=== PATIENT | male | born 1980 | race African-American/Black ===

== ENCOUNTER 2018-09-28 19:51 | Emergency (ER) | payer SELFPAY ==
[~2018-09-28] VITALS: Ht 177.8 cm; Wt 89.8 kg
[2018-09-28 19:51] VITALS: BP 142/79
[~2018-09-28 19:51] MED LIST: ALPR0.5T PO; CLON1TAB PO; TRAZ-85 PO
[2018-09-28] MEDS ORDERED: KETOROLAC 60 MG/2 ML VIAL. IM ONE (20:15)
[2018-09-28] MEDS ORDERED: diazePAM 5 MG TABLET PO ONE (20:15)
--- NOTE | 2018-09-28 20:43 | PHYS DOC ---
Past Medical History Past Medical History: Anxiety, Bipolar, Hypertension, Other Additional Past Medical Histor: POLYPHARMACY ABUSE, back pain Past Surgical History: No Surgical History Alcohol Use: Occasionally Drug Use: Marijuana Adult General Chief Complaint Chief Complaint: LOWER BACK PAIN OR INJURY HPI HPI Patient is a 38 year old AA male who presents to the ER with complaints of mid to low back pain that is on the left side and occasionally radiates to his left leg. Pt reports an injury a year ago that he received physical therapy for and mediations. Pt states he is not taking anything for his back pain at this time. He denies any new injury. He denies any loss of bowel/bladder control or saddle anesthesia. Currently, he rates the pain a 10/10 on the pain scale and reports that the pain is exacerbated by palpation and movement. Review of Systems Review of Systems Constitutional: Denies fever or chills [] Eyes: Denies change in visual acuity, redness, or eye pain [] HENT: Denies nasal congestion or sore throat [] Respiratory: Denies cough or shortness of breath [] Cardiovascular: No additional information not addressed in HPI [] GI: Denies abdominal pain, nausea, vomiting, or diarrhea [] : Denies dysuria or hematuria [] Musculoskeletal: See HPi Integument: Denies rash or skin lesions [] Neurologic: Denies headache, focal weakness or sensory changes [] Complete systems were reviewed and found to be within normal limits, except as documented in this note. Current Medications Current Medications Current Medications Medications (Trade) Dose Ordered Sig/José Start Time Stop Time Status Last Admin Dose Admin Diazepam (Valium) 5 mg 1X ONCE 09/28/18 20:15 09/28/18 20:16 DC 09/28/18 20:30 5 MG Ketorolac Tromethamine (Toradol Im) 30 mg 1X ONCE 09/28/18 20:15 09/28/18 20:16 DC 09/28/18 20:30 30 MG Allergies Allergies Allergies Coded Allergies Type Severity Reaction Last Updated Verified Penicillins Allergy Unknown 08/30/14 No Physical Exam Physical Exam Constitutional: Well developed, well nourished, no acute distress, non-toxic appearance. [] HENT: Normocephalic, atraumatic, bilateral external ears normal, nose normal. [] Eyes: conjunctiva normal, no discharge. [] Neck: Normal range of motion, no stridor. [] Skin: Warm, dry, no erythema, no rash. [] Back: left lumbar paraspinal and lumbar bony tenderness to palpation, no crepitus or deformity, increased back pain with left straight leg lift Extremities: No cyanosis, no clubbing, ROM intact, no edema. [] Neurologic: Alert and oriented X 3, normal motor function, normal sensory function, no focal deficits noted. [] Psychologic: Affect normal, judgement normal, mood normal. [] Current Patient Data Vital Signs Vital Signs Date Time Temp Pulse Resp B/P (MAP) Pulse Ox O2 Delivery O2 Flow Rate FiO2 09/28/18 19:51 97.8 73 20 142/79 (100) 97 Room Air 97.8 EKG EKG [] Radiology/Procedures Radiology/Procedures [] Course & Med Decision Making Course & Med Decision Making Pertinent Labs and Imaging studies reviewed. (See chart for details) Dx: low back pain with left leg sciatica Pt was given 30 mg of toradol IM and 5 mg PO valium; Pt declined X-ray of lumbar spine Prescriptions written for naproxen and flexeril. Follow up with PCP if symptoms persist, return to the ER if symptoms worsen. Patient verbalized an understanding of home care, medications, follow-up, and return to ED instructions and was in agreement with the plan of care. [] Dragon Disclaimer Dragon Disclaimer This electronic medical record was generated, in whole or in part, using a voice recognition dictation system. Departure Departure Impression: Primary Impression: Low back pain with left-sided sciatica Disposition: HOME, SELF-CARE Condition: STABLE Referrals: NO PCP (PCP) Patient Instructions: Back Pain, Adult, [id number], Sciatica, [id number] Additional Instructions: Fill the Prescriptions and use as directed. May apply ice or heat to the sore areas for comfort. Activity as tolerated. Follow-up with your primary care doctor if symptoms persist. Return to the ER if symptoms worsen. Scripts Cyclobenzaprine Hcl (CYCLOBENZAPRINE HCL) 10 Mg Tablet 1 TAB PO TID PRN for PAIN for 7 Days, #21 TAB 0 Refills Prov: JORGE RUBI [employer] 09/28/18 Naproxen (NAPROXEN) 500 Mg Tablet 500 MG PO BID PRN for PAIN for 10 Days, #20 TAB 0 Refills Prov: JORGE RUBI [employer] 09/28/18 Problem Qualifiers Primary Impression: Low back pain with left-sided sciatica Chronicity: acute Back pain laterality: left Qualified Codes: M54.42 - Lumbago with sciatica, left side JORGE [employer]BI [employer] Sep 28, 2018 20:43
[2018-09-28] MEDS ORDERED: CYCL10TA2 PO (20:50)
[2018-09-28] MEDS ORDERED: NAPR-514 PO (20:50)
== END 2018-09-28 21:12 | disposition home or self-care (01) ==
LOC: ER 19:51
DX: M54.42 Lumbago with sciatica, left side (principal); F41.9 Anxiety disorder, unspecified; F31.9 Bipolar disorder, unspecified; I10 Essential (primary) hypertension; Z88.0 Allergy status to penicillin
CPT/HCPCS: 96372; 99283; J1885

== ENCOUNTER 2018-10-20 16:41 | Emergency (ER) | payer SELFPAY ==
[~2018-10-20] VITALS: Ht 182.9 cm; Wt 105.2 kg
[~2018-10-20 16:41] MED LIST changes: +CYCL10TA2 PO; +NAPR-514 PO
[2018-10-20] MEDS ORDERED: KETOROLAC 30 MG/ML VIAL. IV ONE (18:15)
[2018-10-20] MEDS ORDERED: METH4TAB2 PO (18:22)
--- NOTE | 2018-10-20 18:26 | PHYS DOC ---
Past Medical History Past Medical History: Anxiety, Bipolar, Hypertension, Other Additional Past Medical Histor: POLYPHARMACY ABUSE, back pain Past Surgical History: No Surgical History Alcohol Use: Occasionally Drug Use: Marijuana Adult General Chief Complaint Chief Complaint: BACK PAIN OR INJURY HPI HPI Patient is a 38 year old male who presents with back pain. The patient come via [place] [place] [facility]. He states he has point spinal pain in his lower back. He states he can't walk due to pain, but was ambulating. He denies spontaneous loss of bolwel or bladder, saddle numbness or foot drop. Review of Systems Review of Systems Constitutional: Denies fever or chills [] Eyes: Denies change in visual acuity, redness, or eye pain [] HENT: Denies nasal congestion or sore throat [] Respiratory: Denies cough or shortness of breath [] Cardiovascular: No additional information not addressed in HPI [] GI: Denies abdominal pain, nausea, vomiting, bloody stools or diarrhea [] : Denies dysuria or hematuria [] Musculoskeletal: See HPI Integument: Denies rash or skin lesions [] Neurologic: Denies headache, focal weakness or sensory changes [] Endocrine: Denies polyuria or polydipsia [] All other systems were reviewed and found to be within normal limits, except as documented in this note. Current Medications Current Medications Current Medications Medications (Trade) Dose Ordered Sig/José Start Time Stop Time Status Last Admin Dose Admin Clonidine HCl (Catapres) 0.1 mg 1X ONCE 10/20/18 19:45 10/20/18 19:46 DC 10/20/18 19:41 0.1 MG Ketorolac Tromethamine (Toradol 30mg Vial) 30 mg 1X ONCE 10/20/18 18:15 10/20/18 18:16 Cancel Ketorolac Tromethamine (Toradol Im) 60 mg 1X ONCE 10/20/18 18:30 10/20/18 18:31 DC 10/20/18 18:30 60 MG Potassium Chloride (Klor-Con) 40 meq 1X ONCE 10/20/18 19:45 10/20/18 19:46 DC 10/20/18 19:41 40 MEQ Allergies Allergies Allergies Coded Allergies Type Severity Reaction Last Updated Verified Penicillins Allergy Unknown 08/30/14 No Physical Exam Physical Exam Constitutional: Well developed, well nourished, no acute distress, non-toxic appearance. [] HENT: Normocephalic, atraumatic, bilateral external ears normal, oropharynx moist, no oral exudates, nose normal. [] Eyes: PERRLA, EOMI, conjunctiva normal, no discharge. [] Neck: Normal range of motion, no tenderness, supple, no stridor. [] Cardiovascular:Heart rate regular rhythm, no murmur [] Lungs & Thorax: Bilateral breath sounds clear to auscultation [] Abdomen: Bowel sounds normal, soft, no tenderness, no masses, no pulsatile masses. [] Skin: Warm, dry, no erythema, no rash. [] Back: tenderness to lumbar spine with palpation, no CVA tenderness. [] Extremities: No tenderness, no cyanosis, no clubbing, ROM intact, no edema. [] Neurologic: Alert and oriented X 3, normal motor function, normal sensory function, no focal deficits noted. [] Psychologic: Affect normal, judgement normal, mood aggressive and angry [] Current Patient Data Vital Signs Vital Signs Date Time Temp Pulse Resp B/P (MAP) Pulse Ox O2 Delivery O2 Flow Rate FiO2 10/20/18 20:00 100 16 155/98 (117) 98 Room Air 10/20/18 18:52 98.5 98.5 Lab Values Laboratory Tests Test 10/20/18 19:08 10/20/18 19:45 White Blood Count 10.7 x10^3/uL (4.0-11.0) Red Blood Count 5.86 x10^6/uL (4.30-5.70) H Hemoglobin 17.3 g/dL (13.0-17.5) Hematocrit 50.3 % (39.0-53.0) Mean Corpuscular Volume 86 fL (79-100) Mean Corpuscular Hemoglobin 30 pg (25-35) Mean Corpuscular Hemoglobin Concent 34 g/dL (31-37) Red Cell Distribution Width 14.6 % (11.5-14.5) H Platelet Count 277 x10^3/uL (140-400) Neutrophils (%) (Auto) 58 % (31-73) Lymphocytes (%) (Auto) 35 % (24-48) Monocytes (%) (Auto) 5 % (0-9) Eosinophils (%) (Auto) 1 % (0-3) Basophils (%) (Auto) 1 % (0-3) Neutrophils # (Auto) 6.2 x10^3uL (1.8-7.7) Lymphocytes # (Auto) 3.8 x10^3/uL (1.0-4.8) Monocytes # (Auto) 0.6 x10^3/uL (0.0-1.1) Eosinophils # (Auto) 0.1 x10^3/uL (0.0-0.7) Basophils # (Auto) 0.1 x10^3/uL (0.0-0.2) Sodium Level 141 mmol/L (136-145) Potassium Level 3.3 mmol/L (3.5-5.1) L Chloride Level 100 mmol/L (98-107) Carbon Dioxide Level 26 mmol/L (21-32) Anion Gap 15 (6-14) H Blood Urea Nitrogen 10 mg/dL (8-26) Creatinine 1.1 mg/dL (0.7-1.3) Estimated GFR (Cockcroft-Gault) 90.6 BUN/Creatinine Ratio 9 (6-20) Glucose Level 121 mg/dL (70-99) H Calcium Level 11.2 mg/dL (8.5-10.1) H Total Bilirubin 0.5 mg/dL (0.2-1.0) Aspartate Amino Transferase (AST) 20 U/L (15-37) Alanine Aminotransferase (ALT) 42 U/L (16-63) Alkaline Phosphatase 97 U/L (46-116) Total Protein 8.0 g/dL (6.4-8.2) Albumin 4.2 g/dL (3.4-5.0) Albumin/Globulin Ratio 1.1 (1.0-1.7) Urine Collection Type Unknown Urine Color Yellow Urine Clarity Clear Urine pH 7.0 Urine Specific [place] 1.015 Urine Protein Negative mg/dL (NEG-TRACE) Urine Glucose (UA) Negative mg/dL (NEG) Urine Ketones (Stick) Negative mg/dL (NEG) Urine Blood Negative (NEG) Urine Nitrite Negative (NEG) Urine Bilirubin Negative (NEG) Urine Urobilinogen Dipstick 0.2 mg/dL (0.2 mg/dL) Urine Leukocyte Esterase Negative (NEG) Urine RBC 1-2 /HPF (0-2) Urine WBC 0 /HPF (0-4) Urine Bacteria 0 /HPF (0-FEW) Urine Mucus Mod /LPF Urine Opiates Screen Neg (NEG) Urine Methadone Screen Neg (NEG) Urine Barbiturates Neg (NEG) Urine Phencyclidine Screen Neg (NEG) Urine Amphetamine/Methamphetamine Pos (NEG) Urine Benzodiazepines Screen Neg (NEG) Urine Cocaine Screen Neg (NEG) Urine Cannabinoids Screen Pos (NEG) Urine Ethyl Alcohol Neg (NEG) Laboratory Tests 10/20/18 19:08 Laboratory Tests 10/20/18 19:08 EKG EKG [] Radiology/Procedures Radiology/Procedures []PATIENT: JENNIFFER SOLOMON DACCOUNT: [id number]#: [id number] : 1980 LOCATION: ER AGE: 38 SEX: M EXAM STATUS: REG ER ORD. PHYSICIAN: ZULMA DOUGLAS APRN REASON: point spinal pain, no injury PROCEDURE: THORACIC SPINE 3V Three-view thoracic spine radiographs to include three view lumbar spine radiographs October 20, 2018 CLINICAL HISTORY: Mid and low back pain. AP, lateral and swimmer's lateral digital radiographs of the thoracic spine were obtained. AP and two lateral digital radiographs of the lumbar spine were obtained. Minimal S-shaped curvature of the thoracolumbar spine is seen. No fracture or subluxation of the thoracic or lumbar vertebrae seen. Minimal degenerative changes are seen involving the mid and lower thoracic disc spaces consisting of vertebral endplate sclerosis and minimal anterior vertebral body osteophyte formation along with degenerative changes involving the facet joints. Minimal degenerative changes are seen involving the lower lumbar spine consisting of vertebral endplate sclerosis, minimal anterior vertebral body osteophyte formation and degenerative changes involving the facet joints. IMPRESSION: Minimal degenerative changes are seen involving the thoracic and lumbar spine. No acute osseous abnormality is seen. Electronically signed by: Julian Sierra MD (10/20/2018 9:46 PM) [facility] DICTATED and SIGNED BY: JULIAN SIERRA MD DATE: 10/20/182143 Course & Med Decision Making Course & Med Decision Making Pertinent Labs and Imaging studies reviewed. (See chart for details) Following discharge from the emergency department for his back pain the patient went to the desk and claimed that he was having suicidal ideation. He requested to be checked back in for his suicidal thoughts and anxiety. The psychiatric assessment team was notified. Lab work was drawn. The patient was positive for methamphetamine and marijuana use. The patient did receive a bad at [facility] and was transferred via EMS. Jess Disclaimer Jess Disclaimer This electronic medical record was generated, in whole or in part, using a voice recognition dictation system. Departure Departure Impression: Primary Impression: Back pain Additional Impressions: Methamphetamine abuse Anxiety Suicidal ideation Disposition: 65 XFER TO PSYCH HOSP/UNIT Condition: GOOD Referrals: NO PCP (PCP) Patient Instructions: Back Pain, Adult Additional Instructions: Take the medication as directed. You are being transported to [facility] by EMS. Scripts Methylprednisolone (MEDROL) 4 Mg Tab.ds.pk 1 PKG PO UD for back pain, #1 PKG Prov: ZULMA DOUGLAS APRN 10/20/18 Problem Qualifiers ZULMA DOUGLAS APRN Oct 20, 2018 18:26
[2018-10-20] MEDS ORDERED: KETOROLAC 60 MG/2 ML VIAL. IM ONE (18:30)
[2018-10-20 19:18] LABS: BASO # 0.1 x10^3/uL (0.0-0.2); BASO % 1 % (0-3); EOS # 0.1 x10^3/uL (0.0-0.7); EOS % 1 % (0-3); HEMATOCRIT 50.3 % (39.0-53.0); HEMOGLOBIN 17.3 g/dL (13.0-17.5); LYMPH # 3.8 x10^3/uL (1.0-4.8); LYMPH % 35 % (24-48); MEAN CORPUSCULAR HEMOGLOBIN 30 pg (25-35); MEAN CORPUSCULAR HGB CONC 34 g/dL (31-37); MEAN CORPUSCULAR VOLUME 86 fL (79-100); MONO # 0.6 x10^3/uL (0.0-1.1); MONO % 5 % (0-9); NEUT # 6.2 x10^3uL (1.8-7.7); NEUT % 58 % (31-73); PLATELET COUNT 277 x10^3/uL (140-400); RED BLOOD COUNT 5.86 x10^6/uL (4.30-5.70); RED CELL DISTRIBUTION WIDTH 14.6 % (11.5-14.5); WHITE BLOOD COUNT 10.7 x10^3/uL (4.0-11.0)
[2018-10-20 19:26] LABS: CALCIUM 11.2 mg/dL (8.5-10.1); CREATININE 1.1 mg/dL (0.7-1.3); GFR 90.6; POTASSIUM 3.3 mmol/L (3.5-5.1)
[2018-10-20 19:31] LABS: ALBUMIN 4.2 g/dL (3.4-5.0); ALBUMIN/GLOBULIN RATIO 1.1 (1.0-1.7); TOTAL BILIRUBIN 0.5 mg/dL (0.2-1.0)
[2018-10-20] MEDS ORDERED: POTASSIUM CHLORIDE 20 MEQ TABLET.ER. PO ONE (19:45)
[2018-10-20] MEDS ORDERED: cloNIDine HCL 0.1 MG TABLET PO ONE (19:45)
[2018-10-20 19:58] LABS: BILIRUBIN,URINE NEGATIVE (NEG); CLARITY,URINE CLEAR; COLOR,URINE YELLOW; NITRITE,URINE NEGATIVE (NEG); PROTEIN,URINE NEGATIVE (NEG-TRACE); UROBILINOGEN,URINE 0.2 mg/dL (0.2 mg/dL)
[2018-10-20 20:00] VITALS: BP 155/98
[2018-10-20 20:05] LABS: BACTERIA,URINE 0 /HPF (0-FEW); WBC,URINE 0 /HPF (0-4)
[2018-10-20 20:06] LABS: BARBITURATES NEG (NEG); BENZODIAZEPINES NEG (NEG); CANNABINOIDS POS (NEG); COCAINE NEG (NEG); METHADONE NEG (NEG); OPIATES NEG (NEG); PHENCYCLIDINE NEG (NEG)
[2018-10-20 20:10] LABS: AMPHETAMINE/METHAMPHETAMINE POS (NEG)
--- NOTE | 2018-10-20 21:50 | RAD ---
Three-view thoracic spine radiographs to include three view lumbar spine radiographs October 20, 2018 CLINICAL HISTORY: Mid and low back pain. AP, lateral and swimmer's lateral digital radiographs of the thoracic spine were obtained. AP and two lateral digital radiographs of the lumbar spine were obtained. Minimal S-shaped curvature of the thoracolumbar spine is seen. No fracture or subluxation of the thoracic or lumbar vertebrae seen. Minimal degenerative changes are seen involving the mid and lower thoracic disc spaces consisting of vertebral endplate sclerosis and minimal anterior vertebral body osteophyte formation along with degenerative changes involving the facet joints. Minimal degenerative changes are seen involving the lower lumbar spine consisting of vertebral endplate sclerosis, minimal anterior vertebral body osteophyte formation and degenerative changes involving the facet joints. IMPRESSION: Minimal degenerative changes are seen involving the thoracic and lumbar spine. No acute osseous abnormality is seen. Electronically signed by: Julian Freedman MD (10/20/2018 9:46 PM) [facility]
== END 2018-10-20 21:53 ==
LOC: ER 16:41
DX: M54.5 Low back pain (principal); F41.9 Anxiety disorder, unspecified; F15.10 Other stimulant abuse, uncomplicated; R45.851 Suicidal ideations; F31.9 Bipolar disorder, unspecified; I10 Essential (primary) hypertension; Z88.0 Allergy status to penicillin
CPT/HCPCS: 36415; 72072; 72100; 80053; 80307; 81001; 85025; 96372; 99285; J1885

== ENCOUNTER 2021-01-12 06:51 | Emergency (ER) | payer SELFPAY ==
[~2021-01-12] VITALS: Ht 180.3 cm; Wt 86.0 kg
[~2021-01-12 06:51] MED LIST changes: +METH4TAB2 PO; +TRAZ-118 PO; -TRAZ-85 PO
--- NOTE | 2021-01-12 06:58 | PHYS DOC ---
Past Medical History Past Medical History: Anxiety, Bipolar, Hypertension, Other Additional Past Medical Histor: POLYPHARMACY ABUSE, back pain Past Surgical History: No Surgical History Smoking Status: Current Every Day Smoker Alcohol Use: Occasionally Drug Use: Marijuana General Adult EDM: Chief Complaint: SHORTNESS OF BREATH HPI: HPI: This is a pleasant 40-year-old male presenting the emergency department today with chest pain. Started within the past 24 hours. He is associated with shortness of breath. He describes it as throbbing aching nonradiating pain without alleviating factors. He is not take anything for the pain. He describes it as 10 out of 10 however is not in any distress without any objective signs of pain. Not grimacing not fidgety he appears calm comfortable and without any distress. He denies unilateral leg swelling hemoptysis recent immobilization or surgery. He denies unilateral leg pain. He denies having diabetes. He does have high blood pressure. He denies hyperlipidemia. He does smoke. Review of systems negative for abdominal pain nausea vomiting diaphoresis fevers chills. All other review of systems negative. ED course: 40-year-old male presented emerge department today with chest pain. EKG unremarkable. Chest x-ray unremarkable. Blood work unremarkable. On reexamination the patient is resting comfortably. He feels much better and is without distress. His pain is improved substantially. He is well-appearing and much improved. We will discharge the patient to follow-up with PCP in 1 to 2 days. They were to return if their symptoms worsened or if they were concerned for any reason. They were also instructed to return to the emergency department if they were unable to get the recommended and appropriate follow-up. [id number] discharge instructions and return precautions were given. Patient's questions were answered to their satisfaction. Patient is comfortable with plan. If his chest pain returns or if he is concerned for any reason he should come back or call 911., Heart Score: C/O Chest Pain: Yes HEART Score for Chest Pain: HEART Score for Chest Pain Response (Comments) Value History Slighlty/Non-Suspicious 0 ECG Normal 0 Age < 45 0 Risk Factors 1 or 2 Risk Factors 1 Troponin < Normal Limit 0 Total 1 Risk Factors: Risk Factors: DM, Current or recent (<one month) smoker, HTN, HLP, family history of CAD, obesity. Risk Scores: Score 0 - 3: 2.5% MACE over next 6 weeks - Discharge Home Score 4 - 6: 20.3% MACE over next 6 weeks - Admit for Clinical Observation Score 7 - 10: 72.7% MACE over next 6 weeks - Early Invasive Strategies Allergies: Allergies: Allergies Coded Allergies Type Severity Reaction Last Updated Verified Penicillins Allergy Unknown 08/30/14 No Physical Exam: PE: Constitutional: Well developed, well nourished, no acute distress, non-toxic appearance. [] HENT: Normocephalic, atraumatic, bilateral external ears normal, oropharynx m oist, no oral exudates, nose normal. [] Eyes: PERRLA, EOMI, conjunctiva normal, no discharge. [] Neck: Normal range of motion, no tenderness, supple, no stridor. [] Cardiovascular:Heart rate regular rhythm, no murmur [] Lungs & Thorax: Bilateral breath sounds clear to auscultation [] Abdomen: Bowel sounds normal, soft, no tenderness, no masses, no pulsatile masses. [] Skin: Warm, dry, no erythema, no rash. [] Back: No tenderness, no CVA tenderness. [] Extremities: No tenderness, no cyanosis, no clubbing, ROM intact, no edema. [] Neurologic: Alert and oriented X 3, normal motor function, normal sensory function, no focal deficits noted. [] Psychologic: Affect normal, judgement normal, mood normal. [] EKG: EKG: [] EKG shows sinus rhythm with a regular rate. ST segments congruent. Not suggestive of acute ischemia. Radiology/Procedures: Radiology/Procedures: [] Course & Med Decision Making: Course & Med Decision Making Pertinent Labs and Imaging studies reviewed. (See chart for details) [] Dragon Disclaimer: Dragon Disclaimer: This electronic medical record was generated, in whole or in part, using a voice recognition dictation system. Departure Departure Impression: Primary Impression: Chest pain Disposition: 01 HOME / SELF CARE / HOMELESS Condition: STABLE Referrals: NO PCP (PCP) Patient Instructions: Chest Pain (Nonspecific) Additional Instructions: EMERGENCY DEPARTMENT GENERAL DISCHARGE INSTRUCTIONS Follow-up with your primary physician in 1 to 2 days. Return to the emergency department if you have any new or concerning findings. Thank you for coming to [facility] Emergency [facility] (ED) [facility] and trusting us with you care. We trust that you had a positive experience in our Emergency Department. If you wish to speak to the department management, you may call the Director at [phone]. Follow up is important in emergency/acute care visits. This condition should be evaluated by your primary care physician and any necessary consulting services for continued management within a few days (1-2) after discharge. Return to the emergency department if you have any new or concerning symptoms including but not limited to fever, chills, nausea, vomiting, intractable pain, any new rashes, chest pain, shortness of breath, uncontrolled bleeding, difficulty breathing, and/or vision loss. 1. Do you have a private Doctor? If you do not have a private doctor, please ask for a resource list of physicians or clinics that may be able to assist you with follow up care. 2. If a lab test or culture has been done and does not come back immediately, your results will be reviewed and you will be notified if you need a change in treatment. 3. Your care today has been supervised by a physician who is specially trained in emergency care. Many problems require more than one evaluation for a complete diagnosis and treatment. We recommend that you schedule your follow up appointment as recommended to ensure complete treatment of you illness or injury. If you are unable to obtain follow up care and continue to have a problem, or if your condition worsens, we recommend that you return to the ED. 4. We are not able to safely determine your condition over the phone nor are we able to give sound medical advice over the phone. For these safety reasons, if you call for medical advice we will ask you to come to the ED for further evaluation. IF YOUR SYMPTOMS WORSEN OR NEW SYMPTOMS DEVELOP, OR YOU HAVE CONCERNS ABOUT YOUR CONDITION; OR IF YOUR CONDITION WORSENS WHILE YOU ARE WAITING FOR YOUR FOLLOW UP APPOINTMENT; EITHER CONTACT YOUR PRIMARY CARE DOCTOR, THE PHYSICIAN WHOSE NAME AND NUMBER YOU WERE GIVEN, OR RETURN TO THE ED IMMEDIATELY. SASHA HARRIS MD January 12, 2021 06:58
--- NOTE | 2021-01-12 07:11 | RAD ---
XR CHEST 1V History: Reason: chest pain / Spl. Instructions: / History: Comparison: None. Findings: No consolidation or pleural effusion. Normal heart size. No pneumothorax. Impression: 1. No acute cardiopulmonary process. Electronically signed by: Carlin Louise DO (01/12/2021 7:09 AM) [id number]
[2021-01-12 07:21] VITALS: BP 148/96
[2021-01-12 07:28] LABS: BASO # 0.1 x10^3/uL (0.0-0.2); BASO % 1 % (0-3); EOS # 0.1 x10^3/uL (0.0-0.7); EOS % 1 % (0-3); HEMATOCRIT 42.5 % (39.0-53.0); HEMOGLOBIN 14.7 g/dL (13.0-17.5); LYMPH % 24 % (24-48); MEAN CORPUSCULAR HEMOGLOBIN 31 pg (25-35); MEAN CORPUSCULAR HGB CONC 35 g/dL (31-37); MEAN CORPUSCULAR VOLUME 89 fL (79-100); MONO # 0.4 x10^3/uL (0.0-1.1); MONO % 5 % (0-9); NEUT # 5.9 x10^3/uL (1.8-7.7); NEUT % 70 % (31-73); PLATELET COUNT 267 x10^3/uL (140-400); RED BLOOD COUNT 4.79 x10^6/uL (4.30-5.70); RED CELL DISTRIBUTION WIDTH 13.3 % (11.5-14.5); WHITE BLOOD COUNT 8.4 x10^3/uL (4.0-11.0)
[2021-01-12 07:30] LABS: PROTHROMBIN TIME PATIENT 13.1 SEC (11.7-14.0)
[2021-01-12] MEDS ORDERED: ASPIRIN CHEWABLE 81 MG TABLET. PO ONE (07:30)
[2021-01-12 07:31] LABS: CALCIUM 9.1 mg/dL (8.5-10.1); CREATININE 1.1 mg/dL (0.7-1.3); GFR 89.7; POTASSIUM 3.4 mmol/L (3.5-5.1)
[2021-01-12 07:37] LABS: ALBUMIN 4.1 g/dL (3.4-5.0); D-DIMER 0.29 ug/mlFEU (0.00-0.50); DIRECT BILIRUBIN 0.2 mg/dL (0.0-0.2); TOTAL BILIRUBIN 0.4 mg/dL (0.2-1.0)
== END 2021-01-12 08:30 | disposition home or self-care (01) ==
LOC: ER 06:51
DX: R07.89 Other chest pain (principal); R06.02 Shortness of breath; F31.9 Bipolar disorder, unspecified; I10 Essential (primary) hypertension; F41.9 Anxiety disorder, unspecified; F17.200 Nicotine dependence, unspecified, uncomplicated; Z88.0 Allergy status to penicillin
CPT/HCPCS: 36415; 71045; 80048; 80076; 83690; 83880; 84484; 85025; 85379; 85610; 85730; 99285-25

== ENCOUNTER 2021-10-19 21:59 | Emergency (ER) | payer MEDICAID ==
[~2021-10-19] VITALS: Ht 180.3 cm; Wt 90.9 kg
[~2021-10-19 21:59] MED LIST changes: +CYCL10TA19 PO; -CYCL10TA2 PO
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
[2021-10-19 22:39] LABS: BASO # 0.1 x10^3/uL (0.0-0.2); BASO % 1 % (0-3); EOS # 0.1 x10^3/uL (0.0-0.7); EOS % 1 % (0-3); HEMATOCRIT 43.4 % (39.0-53.0); HEMOGLOBIN 14.6 g/dL (13.0-17.5); LYMPH # 2.6 x10^3/uL (1.0-4.8); LYMPH % 30 % (24-48); MEAN CORPUSCULAR HEMOGLOBIN 30 pg (25-35); MEAN CORPUSCULAR HGB CONC 34 g/dL (31-37); MEAN CORPUSCULAR VOLUME 91 fL (79-100); MONO # 0.4 x10^3/uL (0.0-1.1); MONO % 5 % (0-9); NEUT # 5.6 x10^3/uL (1.8-7.7); NEUT % 64 % (31-73); PLATELET COUNT 274 x10^3/uL (140-400); RED BLOOD COUNT 4.79 x10^6/uL (4.30-5.70); RED CELL DISTRIBUTION WIDTH 13.5 % (11.5-14.5); WHITE BLOOD COUNT 8.8 x10^3/uL (4.0-11.0)
[2021-10-19 22:51] LABS: CALCIUM 8.6 mg/dL (8.5-10.1); CREATININE 0.9 mg/dL (0.7-1.3); GFR 112.5; POTASSIUM 3.6 mmol/L (3.5-5.1)
[2021-10-19 22:54] LABS: ACETAMIN < 2 mcg/ml (10-30); ETHANOL 19 mg/dL (0-10); SALIC 5.4 mg/dL (2.8-20.0)
[2021-10-19 22:57] LABS: ALBUMIN 3.5 g/dL (3.4-5.0); ALBUMIN/GLOBULIN RATIO 0.9 (1.0-1.7); TOTAL BILIRUBIN 0.2 mg/dL (0.2-1.0); TOTAL PROTEIN 7.2 g/dL (6.4-8.2)
[2021-10-19 23:29] LABS: BILIRUBIN,URINE NEGATIVE (NEG); CLARITY,URINE CLEAR; COLOR,URINE YELLOW; NITRITE,URINE NEGATIVE (NEG); PH,URINE 6.5 (<5.0-8.0); PROTEIN,URINE NEGATIVE (NEG-TRACE); UROBILINOGEN,URINE 0.2 mg/dL (0.2 mg/dL)
[2021-10-19 23:36] LABS: BARBITURATES NEG (NEG); BENZODIAZEPINES POS (NEG); CANNABINOIDS POS (NEG); COCAINE NEG (NEG); METHADONE NEG (NEG); OPIATES NEG (NEG); PHENCYCLIDINE POS (NEG)
[2021-10-19 23:37] LABS: BACTERIA,URINE 0 /HPF (0-FEW); RBC,URINE OCC /HPF (0-2); WBC,URINE 0 /HPF (0-4)
[2021-10-19 23:40] LABS: AMPHETAMINE/METHAMPHETAMINE POS (NEG)
[2021-10-20] MEDS ORDERED: hydroCHLOROthiazide 25 MG TABLET PO ONE (00:15)
[2021-10-20] MEDS ORDERED: ACETAMINOPHEN 325 MG TABLET. PO ONE (00:30)
--- NOTE | 2021-10-20 02:33 | EKG ---
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
[2021-10-20 05:00] VITALS: BP 128/70
== END 2021-10-20 05:30 | disposition home or self-care (01) ==
LOC: ER 21:59
DX: R45.850 Homicidal ideations (principal); F31.9 Bipolar disorder, unspecified; I10 Essential (primary) hypertension; F17.200 Nicotine dependence, unspecified, uncomplicated; Z59.00 Homelessness unspecified; Z88.0 Allergy status to penicillin
CPT/HCPCS: 36415; 80053; 80307; 80329; 81001; 84484; 85025; 93005; 99285; G0480